=== PATIENT | male | born 1945 | race Caucasian/White ===

== ENCOUNTER 2020-06-15 13:31 | Inpatient (IN) ==
[2020-06-15 14:10] LABS: Basophils % 0.1 %; Hematocrit 28.6 % (37.5-50.1); Hemoglobin 9.2 g/dL (12.9-16.9); Immature Granulocytes % 0.4 % (0-4); Lymphocytes # 0.5 K/mcL (0.6-4.6); Lymphocytes % 5.4 %; Mean Corpuscular HGB Conc 32.2 g/dL (31.6-35.5); Mean Corpuscular Hemoglobin 30.5 pg (28.0-33.3); Mean Corpuscular Volume 94.7 fL (83.0-100.0); Mean Platelet Volume 9.9 fL (9.4-12.4); Monocytes # 1.2 K/mcL (0.0-1.3); Monocytes % 12.3 %; Neutrophils # 8.3 K/mcL (1.6-8.9); Platelet Count 222 K/mcL (140-400); Red Blood Count 3.02 M/mcL (4.19-5.50); Red Cell Distribution Width 14.1 % (11.5-14.5); Segmented Neutrophils % 81.8 %; White Blood Count 10.1 K/mcL (4.3-11.1)
[2020-06-15 14:18] LABS: VBG HCO3 26 mEq/L (21-27); VBG PCO2 53 mmHg (41-51); VBG PH 7.29 pH Units (7.32-7.42); VBG PO2 43 mmHg (25-50)
[2020-06-15 14:19] LABS: INR 1.2; Prothrombin Time 14.3 Seconds (9.4-12.1)
[2020-06-15 14:21] LABS: Activated Partial Thrombo Time 23.6 Seconds (26.0-36.0)
[2020-06-15 14:30] LABS: Alanine Aminotransferase 18 Units/L (7-52); Albumin 3.8 g/dL (3.5-5.7); Albumin/Globulin Ratio 1.3 (1.1-2.2); Alkaline Phosphatase 85 Units/L (34-104); Aspartate Amino Transferase 22 Units/L (13-39); BUN/Creatinine Ratio 21 (6-26); Bilirubin,Indirect 0.4 mg/dL (0.0-1.0); Bilirubin,Total 0.4 mg/dL (0.3-1.0); Blood Urea Nitrogen 46 mg/dL (8-23); Calcium 8.8 mg/dL (8.6-10.3); Carbon Dioxide 25 mEq/L (23-29); Chloride 96 mEq/L (98-107); Ethanol < 10 mg/dL (Less than 10); Globulin 2.9 g/dL (2.4-3.5); Glucose 199 mg/dL (70-105); Osmolality,Calculated 287 (280-300); Potassium 4.8 mEq/L (3.5-5.1); Sodium 130 mEq/L (136-145); Total Protein 6.7 g/dL (6.4-8.9); Troponin I 0.03 ng/mL (< 0.04); eGFR For African Americans 35 (> 60); eGFR For Non-African Americans 29 (> 60)
[2020-06-15] MEDS ORDERED: Dexamethasone 4 MG/ML VIAL IVP ONE (15:05)
[2020-06-15 16:56] LABS: Bilirubin,Urine Negative (Negative); Blood,Urine Trace (Negative); Clarity,Urine Clear (Clear); Color,Urine Light-Yellow (Yellow); Glucose,Urine (UA) Normal (Normal); Ketones,Urine Negative (Negative); Leukocyte Esterase,Urine Negative (Negative); Mucus,Urine Few per lpf (None-Few); Nitrite,Urine Negative (Negative); PH,Urine 5.5 pH Units (5.0-8.0); Protein,Urine 50 mg/dL (Neg-Trace); RBC,Urine 0-3 per hpf (0-3); Specific Gravity,Urine 1.016 (1.010-1.025); Squamous Epithelial Cell,Urine Few per hpf (None-Few); Urobilinogen,Urine Normal (Normal); WBC,Urine 0-3 per hpf (0-3)
[2020-06-15 17:20] LABS: Amphetamine Screen,Urine Negative ng/mL (Cutoff=1000); Barbiturate Screen,Urine Negative ng/mL (Cutoff=200); Benzodiazepines Screen,Urine Negative ng/mL (Cutoff=200); Cannabinoid Screen,Urine Negative ng/mL (Cutoff = 50); Cocaine Screen,Urine Negative ng/mL (Cutoff= 300); Opiate Screen,Urine Negative ng/mL (Cutoff=300); Phencyclidine Screen,Urine Negative ng/mL (Cutoff=25)
[2020-06-15] MEDS ORDERED: Naloxone 0.4 MG/ML INJ IVP PRN (17:43)
[2020-06-15] MEDS ORDERED: Acetaminophen 325 MG TABLET PO PRN (17:51)
[2020-06-15] MEDS ORDERED: Furosemide 40 MG/4 ML VIAL IVP ONE (17:51)
[2020-06-15] MEDS ORDERED: Dextrose Gel 15 GM/37.5 ML TUBE PO PRN ×2 (17:53)
[2020-06-15] MEDS ORDERED: *HR* Dextrose 50 % in Water (Vial) 50 ML VIAL IVP PRN (17:53)
[2020-06-15] MEDS ORDERED: D5% in Water 1,000 ML IVC PRN (17:53)
[2020-06-15 20:02] LABS: Thyroid Stimulating Hormone 3.144 mcIU/mL (0.340-5.600)
[2020-06-15] MEDS: Insulin LISPRO 300 UNITS/3 ML VIAL SQ SCH (22:03)
[2020-06-15] MEDS: *HR* Heparin 5,000 UNIT/ML VIAL SQ SCH (22:03)
[2020-06-16] MEDS: *HR* Heparin 5,000 UNIT/ML VIAL SQ SCH ×3 (05:33→21:31)
[2020-06-16] MEDS: Aspirin Enteric Coated 81 MG Tablet PO SCH (09:06)
[2020-06-16] MEDS: cefTRIAXone 1,000 MG in Water for inj. (sterile) 10 ML IVP SCH (09:06)
[2020-06-16] MEDS: dexAMETHasone 4 MG TABLET PO SCH (09:06)
[2020-06-16] MEDS: Azithromycin 500 MG in 0.9 % Sodium Chloride 250 ML IVPB SCH (09:07)
[2020-06-16] MEDS: Insulin LISPRO 300 UNITS/3 ML VIAL SQ SCH ×4 (09:08→21:44)
[2020-06-16 09:40] LABS: INR 1.3; Prothrombin Time 14.4 Seconds (9.4-12.1)
[2020-06-16 09:53] LABS: Calcium 8.4 mg/dL (8.6-10.3)
[2020-06-16] MEDS ORDERED: Furosemide 40 MG TABLET PO SCH (13:00)
[2020-06-16] MEDS: Furosemide 40 MG/4 ML VIAL IVP SCH (13:05)
[2020-06-17] MEDS: *HR* HYDROcodone/Acet 5/325 mg TABLET PO PRN ×2 (01:59→14:55)
[2020-06-17] MEDS: *HR* Heparin 5,000 UNIT/ML VIAL SQ SCH (05:46)
[2020-06-17 06:45] LABS: Hematocrit 24.9 % (37.5-50.1); Hemoglobin 8.1 g/dL (12.9-16.9); Mean Corpuscular HGB Conc 32.5 g/dL (31.6-35.5); Mean Corpuscular Hemoglobin 30.6 pg (28.0-33.3); Mean Platelet Volume 9.9 fL (9.4-12.4); Platelet Count 209 K/mcL (140-400); Red Blood Count 2.65 M/mcL (4.19-5.50); Red Cell Distribution Width 13.8 % (11.5-14.5); White Blood Count 7.8 K/mcL (4.3-11.1)
[2020-06-17 07:28] LABS: Calcium 8.4 mg/dL (8.6-10.3); Potassium 4.9 mEq/L (3.5-5.1)
[2020-06-17] MEDS: Insulin LISPRO 300 UNITS/3 ML VIAL SQ SCH ×2 (08:26→11:29)
[2020-06-17] MEDS: Aspirin Enteric Coated 81 MG Tablet PO SCH (08:27)
[2020-06-17] MEDS: dexAMETHasone 4 MG TABLET PO SCH (08:27)
[2020-06-17] MEDS: Azithromycin 500 MG in 0.9 % Sodium Chloride 250 ML IVPB SCH (08:27)
[2020-06-17] MEDS: Furosemide 40 MG/4 ML VIAL IVP SCH (08:30)
[2020-06-17] MEDS: cefTRIAXone 1,000 MG in Water for inj. (sterile) 10 ML IVP SCH (08:31)
[2020-06-17 11:24] VITALS: BP 139/57
== END 2020-06-17 16:22 | disposition home or self-care (01) | DRG 177 ==
LOC: 3BNU 13:31 → EMEROOARM 13:31 → 3BNU 18:50 → SUATTDRO 06-16 14:30
PROVIDERS: ADMIT Internal Medicine; ATTEND Internal Medicine

== ENCOUNTER 2020-06-21 18:25 | Inpatient (IN) ==
[2020-06-21 18:51] LABS: Basophils % 0.1 %; Hematocrit 30.2 % (37.5-50.1); Hemoglobin 9.6 g/dL (12.9-16.9); Immature Granulocytes % 1.5 % (0-4); Lymphocytes # 0.4 K/mcL (0.6-4.6); Lymphocytes % 2.6 %; Mean Corpuscular HGB Conc 31.8 g/dL (31.6-35.5); Mean Corpuscular Volume 94.4 fL (83.0-100.0); Mean Platelet Volume 9.8 fL (9.4-12.4); Monocytes # 0.8 K/mcL (0.0-1.3); Monocytes % 5.9 %; Neutrophils # 12.4 K/mcL (1.6-8.9); Platelet Count 297 K/mcL (140-400); Segmented Neutrophils % 89.9 %
[2020-06-21 18:54] LABS: INR 1.4; Prothrombin Time 16.2 Seconds (9.4-12.1); White Blood Count 13.8 K/mcL (4.3-11.1)
[2020-06-21 18:56] LABS: Activated Partial Thrombo Time 28.8 Seconds (26.0-36.0)
[2020-06-21 18:59] LABS: ABG Base Excess -3 mEq/L (-2 to 3); ABG HCO3 22 mEq/L (21-27); ABG Oxygen Saturation 93 % (95-98); ABG PCO2 36 mmHg (35-45); ABG PH 7.39 pH Units (7.32-7.45); ABG PO2 67 mmHg (85-104); ABG TCO2 23 mEq/L (20-26)
[2020-06-21] MEDS ORDERED: Azithromycin 500 MG in 0.9 % Sodium Chloride 250 ML IVPB ONE (19:38)
[2020-06-21 19:54] LABS: Albumin 3.4 g/dL (3.5-5.7); Albumin/Globulin Ratio 1.1 (1.1-2.2); Bilirubin,Direct 0.2 mg/dL (0.0-0.2); Bilirubin,Indirect 0.3 mg/dL (0.0-1.0); Bilirubin,Total 0.5 mg/dL (0.3-1.0); Calcium 9.1 mg/dL (8.6-10.3); Magnesium 1.9 mg/dL (1.6-2.6); Phosphorous 3.6 mg/dL (2.7-4.5); Potassium 5.4 mEq/L (3.5-5.1); Total Protein 6.4 g/dL (6.4-8.9); Troponin I 0.03 ng/mL (< 0.04)
[2020-06-21] MEDS ORDERED: Naloxone 0.4 MG/ML INJ IVP PRN (20:54)
[2020-06-21] MEDS ORDERED: D5% in Water 1,000 ML IVC PRN (20:56)
[2020-06-21] MEDS ORDERED: Dextrose Gel 15 GM/37.5 ML TUBE PO PRN ×2 (20:56)
[2020-06-21] MEDS ORDERED: *HR* Dextrose 50 % in Water (Vial) 50 ML VIAL IVP PRN (20:56)
[2020-06-21] MEDS ORDERED: Benzonatate 100 MG CAPSULE PO PRN (20:58)
[2020-06-21] MEDS: Insulin DETEMIR 100 UNIT/ML X5UNITS SUBQ SCH (23:31)
[2020-06-21] MEDS: Insulin LISPRO 300 UNITS/3 ML VIAL SUBQ SCH (23:31)
[2020-06-21] MEDS: Piperacillin/Tazobactam 3.375 GM in 0.9 % Sodium Chloride Mini Bag 100 ML IVPB SCH (23:32)
[2020-06-22] MEDS: Acetaminophen 325 MG TABLET PO PRN ×2 (02:22→18:05)
[2020-06-22] MEDS: *HR* Heparin 5,000 UNIT/ML VIAL SQ SCH ×2 (06:42→17:48)
[2020-06-22 06:54] LABS: Basophils % 0.1 %; Hematocrit 26.5 % (37.5-50.1); Hemoglobin 8.5 g/dL (12.9-16.9); Immature Granulocytes % 1.6 % (0-4); Lymphocytes # 0.2 K/mcL (0.6-4.6); Lymphocytes % 1.8 %; Mean Corpuscular HGB Conc 32.1 g/dL (31.6-35.5); Mean Corpuscular Hemoglobin 30.2 pg (28.0-33.3); Mean Corpuscular Volume 94.3 fL (83.0-100.0); Mean Platelet Volume 10.1 fL (9.4-12.4); Monocytes # 0.7 K/mcL (0.0-1.3); Monocytes % 5.6 %; Neutrophils # 10.5 K/mcL (1.6-8.9); Platelet Count 249 K/mcL (140-400); Red Blood Count 2.81 M/mcL (4.19-5.50); Segmented Neutrophils % 90.9 %; White Blood Count 11.6 K/mcL (4.3-11.1)
[2020-06-22 07:42] LABS: Magnesium 2.2 mg/dL (1.6-2.6); Phosphorous 4.3 mg/dL (2.7-4.5); Potassium 5.3 mEq/L (3.5-5.1); Troponin I 0.04 ng/mL (< 0.04)
[2020-06-22] MEDS ORDERED: Doxycycline 100 MG in 0.9 % Sodium Chloride Mini Bag 100 ML IVPB SCH (07:43)
[2020-06-22] MEDS ORDERED: Azithromycin 500 MG in 0.9 % Sodium Chloride 250 ML IVPB SCH (08:00)
[2020-06-22] MEDS: Insulin LISPRO 300 UNITS/3 ML VIAL SUBQ SCH ×4 (10:22→20:44)
[2020-06-22] MEDS: Piperacillin/Tazobactam 3.375 GM in 0.9 % Sodium Chloride Mini Bag 100 ML IVPB SCH ×2 (10:23→16:25)
[2020-06-22] MEDS: Aspirin Enteric Coated 81 MG Tablet PO SCH (10:24)
[2020-06-22] MEDS: Furosemide 40 MG/4 ML VIAL IVP SCH (10:24)
[2020-06-22] MEDS: atenoloL 25 MG TABLET PO SCH ×2 (10:24→20:45)
[2020-06-22] MEDS: Ipratropium 1 PUFF INHALER IH SCH ×4 (11:58→23:33)
[2020-06-22] MEDS: Insulin DETEMIR 100 UNIT/ML X5UNITS SUBQ SCH (20:44)
[2020-06-22] MEDS: Azithromycin 500 MG in 0.9 % Sodium Chloride 250 ML IVPB SCH (20:45)
[2020-06-23] MEDS: Piperacillin/Tazobactam 3.375 GM in 0.9 % Sodium Chloride Mini Bag 100 ML IVPB SCH ×5 (00:08→23:42)
[2020-06-23 03:57] LABS: Hematocrit 26.9 % (37.5-50.1); Hemoglobin 8.2 g/dL (12.9-16.9); Mean Corpuscular HGB Conc 30.5 g/dL (31.6-35.5); Mean Corpuscular Hemoglobin 29.1 pg (28.0-33.3); Mean Corpuscular Volume 95.4 fL (83.0-100.0); Mean Platelet Volume 9.9 fL (9.4-12.4); Platelet Count 281 K/mcL (140-400); Red Blood Count 2.82 M/mcL (4.19-5.50); Red Cell Distribution Width 14.3 % (11.5-14.5); White Blood Count 12.6 K/mcL (4.3-11.1)
[2020-06-23] MEDS: Ipratropium 1 PUFF INHALER IH SCH ×5 (04:08→20:20)
[2020-06-23 04:16] LABS: Calcium 8.8 mg/dL (8.6-10.3); Potassium 5.1 mEq/L (3.5-5.1)
[2020-06-23] MEDS: *HR* Heparin 5,000 UNIT/ML VIAL SQ SCH ×2 (04:45→18:12)
[2020-06-23] MEDS: atenoloL 25 MG TABLET PO SCH ×2 (09:01→19:59)
[2020-06-23] MEDS: Aspirin Enteric Coated 81 MG Tablet PO SCH (09:02)
[2020-06-23] MEDS: Insulin LISPRO 300 UNITS/3 ML VIAL SUBQ SCH ×4 (09:28→22:15)
[2020-06-23] MEDS: Furosemide 40 MG/4 ML VIAL IVP SCH (09:32)
[2020-06-23] MEDS: Acetaminophen 325 MG TABLET PO PRN ×2 (13:15→23:46)
[2020-06-23] MEDS: Insulin DETEMIR 100 UNIT/ML X5UNITS SUBQ SCH (20:23)
[2020-06-23] MEDS ORDERED: Furosemide 40 MG/4 ML VIAL IVP SCH (21:00)
[2020-06-23] MEDS: Azithromycin 500 MG in 0.9 % Sodium Chloride 250 ML IVPB SCH (22:29)
[2020-06-24] MEDS: Ipratropium 1 PUFF INHALER IH SCH ×6 (00:45→19:39)
[2020-06-24 05:47] LABS: Hematocrit 25.7 % (37.5-50.1); Mean Corpuscular HGB Conc 31.1 g/dL (31.6-35.5); Mean Corpuscular Hemoglobin 29.7 pg (28.0-33.3); Mean Corpuscular Volume 95.5 fL (83.0-100.0); Mean Platelet Volume 9.9 fL (9.4-12.4); Platelet Count 297 K/mcL (140-400); Red Blood Count 2.69 M/mcL (4.19-5.50); Red Cell Distribution Width 14.3 % (11.5-14.5); White Blood Count 12.3 K/mcL (4.3-11.1)
[2020-06-24 06:09] LABS: Calcium 8.8 mg/dL (8.6-10.3); Magnesium 2.3 mg/dL (1.6-2.6)
[2020-06-24] MEDS: *HR* Heparin 5,000 UNIT/ML VIAL SQ SCH (06:21)
[2020-06-24] MEDS: Piperacillin/Tazobactam 3.375 GM in 0.9 % Sodium Chloride Mini Bag 100 ML IVPB SCH ×2 (08:26→15:24)
[2020-06-24] MEDS: Furosemide 40 MG/4 ML VIAL IVP SCH (08:28)
[2020-06-24] MEDS: atenoloL 25 MG TABLET PO SCH ×2 (08:31→20:19)
[2020-06-24] MEDS: Aspirin Enteric Coated 81 MG Tablet PO SCH (08:31)
[2020-06-24] MEDS: Insulin LISPRO 300 UNITS/3 ML VIAL SUBQ SCH ×4 (08:36→20:19)
[2020-06-24] MEDS: Vancomycin 1,750 MG/517.5 ML IV.SOLN IVPB SCH (13:35)
[2020-06-24] MEDS ORDERED: Pantoprazole 40 MG VIAL IVP ONE (16:00)
[2020-06-24] MEDS: Azithromycin 500 MG in 0.9 % Sodium Chloride 250 ML IVPB SCH (20:18)
[2020-06-24] MEDS: *HR* OxyCODONE/APAP 7.5/325 TABLET PO PRN (20:25)
[2020-06-24] MEDS: Insulin DETEMIR 100 UNIT/ML X5UNITS SUBQ SCH (21:57)
[2020-06-25] MEDS: Piperacillin/Tazobactam 3.375 GM in 0.9 % Sodium Chloride Mini Bag 100 ML IVPB SCH ×4 (00:01→23:34)
[2020-06-25] MEDS: Ipratropium 1 PUFF INHALER IH SCH ×7 (00:09→23:40)
[2020-06-25] MEDS: *HR* OxyCODONE/APAP 7.5/325 TABLET PO PRN ×2 (04:42→17:04)
[2020-06-25] MEDS: Pantoprazole 40 MG VIAL IVP SCH ×2 (04:42→16:52)
[2020-06-25 05:02] LABS: Hematocrit 26.4 % (37.5-50.1); Mean Corpuscular HGB Conc 30.3 g/dL (31.6-35.5); Mean Corpuscular Hemoglobin 29.4 pg (28.0-33.3); Mean Corpuscular Volume 97.1 fL (83.0-100.0); Mean Platelet Volume 9.7 fL (9.4-12.4); Platelet Count 304 K/mcL (140-400); Red Blood Count 2.72 M/mcL (4.19-5.50); Red Cell Distribution Width 14.4 % (11.5-14.5); White Blood Count 11.4 K/mcL (4.3-11.1)
[2020-06-25 05:23] LABS: Calcium 8.8 mg/dL (8.6-10.3); Magnesium 2.2 mg/dL (1.6-2.6); Potassium 5.2 mEq/L (3.5-5.1)
[2020-06-25] MEDS: atenoloL 25 MG TABLET PO SCH ×2 (07:31→20:24)
[2020-06-25] MEDS: Furosemide 40 MG/4 ML VIAL IVP SCH (07:31)
[2020-06-25] MEDS: Insulin LISPRO 300 UNITS/3 ML VIAL SUBQ SCH ×4 (07:33→20:23)
[2020-06-25] MEDS: Vancomycin 1,750 MG/517.5 ML IV.SOLN IVPB SCH (12:06)
[2020-06-25] MEDS ORDERED: 0.9 % Sodium Chloride 500 ML IVC ONE (12:56)
[2020-06-25] MEDS ORDERED: SODIUM CHLORIDE/NAHCO3/KCL/PEG 4,000 ML SOLN.RECON PO ONE (17:00)
[2020-06-25] MEDS: Azithromycin 500 MG in 0.9 % Sodium Chloride 250 ML IVPB SCH (20:19)
[2020-06-25] MEDS: Insulin DETEMIR 100 UNIT/ML X5UNITS SUBQ SCH (20:24)
[2020-06-26] MEDS: *HR* OxyCODONE/APAP 7.5/325 TABLET PO PRN (01:48)
[2020-06-26] MEDS: Ipratropium 1 PUFF INHALER IH SCH ×6 (03:42→22:54)
[2020-06-26 04:25] LABS: Hematocrit 24.1 % (37.5-50.1); Hemoglobin 7.3 g/dL (12.9-16.9); Mean Corpuscular HGB Conc 30.3 g/dL (31.6-35.5); Mean Corpuscular Hemoglobin 29.6 pg (28.0-33.3); Mean Corpuscular Volume 97.6 fL (83.0-100.0); Mean Platelet Volume 9.6 fL (9.4-12.4); Platelet Count 268 K/mcL (140-400); Red Blood Count 2.47 M/mcL (4.19-5.50); Red Cell Distribution Width 14.4 % (11.5-14.5); White Blood Count 11.2 K/mcL (4.3-11.1)
[2020-06-26 04:40] LABS: Calcium 8.3 mg/dL (8.6-10.3); Potassium 4.7 mEq/L (3.5-5.1)
[2020-06-26] MEDS: Pantoprazole 40 MG VIAL IVP SCH (05:19)
[2020-06-26] MEDS: Piperacillin/Tazobactam 3.375 GM in 0.9 % Sodium Chloride Mini Bag 100 ML IVPB SCH ×3 (07:30→23:48)
[2020-06-26] MEDS: atenoloL 25 MG TABLET PO SCH ×2 (07:30→21:41)
[2020-06-26] MEDS: Insulin LISPRO 300 UNITS/3 ML VIAL SUBQ SCH ×5 (07:37→21:40)
[2020-06-26] MEDS: Vancomycin 1,750 MG/517.5 ML IV.SOLN IVPB SCH (12:27)
[2020-06-26] MEDS ORDERED: Lidocaine -MPF 2% 2 ML VIAL ONE (15:25)
[2020-06-26] MEDS ORDERED: *HR* EPINEPHrine 1 MG/10 ML SYRINGE INTRATRACH PRN (16:03)
[2020-06-26] MEDS ORDERED: Pantoprazole 40 MG VIAL IVP ONE (16:49)
[2020-06-26] MEDS: Pantoprazole 40 MG in 0.9 % Sodium Chloride Mini Bag 100 ML IVC SCH ×2 (17:06→21:43)
[2020-06-26] MEDS: Insulin DETEMIR 100 UNIT/ML X5UNITS SUBQ SCH ×2 (20:36→21:41)
[2020-06-26] MEDS: Azithromycin 500 MG in 0.9 % Sodium Chloride 250 ML IVPB SCH (21:40)
[2020-06-27] MEDS: Pantoprazole 40 MG in 0.9 % Sodium Chloride Mini Bag 100 ML IVC SCH ×5 (03:16→19:54)
[2020-06-27] MEDS: Ipratropium 1 PUFF INHALER IH SCH ×6 (03:44→23:10)
[2020-06-27 04:45] LABS: Basophils % 0.1 %; Eosinophils % 0.1 %; Hematocrit 24.5 % (37.5-50.1); Hemoglobin 7.3 g/dL (12.9-16.9); Immature Granulocytes % 1.6 % (0-4); Lymphocytes # 0.4 K/mcL (0.6-4.6); Lymphocytes % 3.8 %; Mean Corpuscular HGB Conc 29.8 g/dL (31.6-35.5); Mean Corpuscular Hemoglobin 29.2 pg (28.0-33.3); Mean Platelet Volume 9.8 fL (9.4-12.4); Monocytes # 0.8 K/mcL (0.0-1.3); Monocytes % 7.7 %; Neutrophils # 9.5 K/mcL (1.6-8.9); Nucleated Red Blood Cells 0.2 /100 WBC (0); Platelet Count 254 K/mcL (140-400); Red Cell Distribution Width 14.6 % (11.5-14.5); Segmented Neutrophils % 86.7 %; White Blood Count 10.9 K/mcL (4.3-11.1)
[2020-06-27 05:04] LABS: Calcium 8.1 mg/dL (8.6-10.3); Potassium 5.3 mEq/L (3.5-5.1)
[2020-06-27] MEDS: Insulin LISPRO 300 UNITS/3 ML VIAL SUBQ SCH ×4 (07:37→19:54)
[2020-06-27] MEDS: atenoloL 25 MG TABLET PO SCH ×2 (07:38→19:53)
[2020-06-27] MEDS: *HR* OxyCODONE/APAP 7.5/325 TABLET PO PRN ×2 (07:38→21:08)
[2020-06-27] MEDS: Piperacillin/Tazobactam 3.375 GM in 0.9 % Sodium Chloride Mini Bag 100 ML IVPB SCH ×3 (07:38→23:45)
[2020-06-27] MEDS ORDERED: 0.9 % Sodium Chloride 250 ML ONE (08:56)
[2020-06-27] MEDS ORDERED: *HR* FentaNYL (PF) 100 MCG/2 ML VIAL ONE (12:42)
[2020-06-27] MEDS ORDERED: Lidocaine -MPF 2% 2 ML VIAL ONE ×2 (12:42→13:30)
[2020-06-27] MEDS ORDERED: Ondansetron 4 MG/2 ML VIAL ONE (12:42)
[2020-06-27] MEDS ORDERED: Ropivacaine/PF 0.5% 30 ML VIAL ONE (12:44)
[2020-06-27] MEDS ORDERED: *HR* OxyCODONE Immed Rel 5 MG TABLET PO PRN ×2 (12:52→14:58)
[2020-06-27] MEDS ORDERED: *HR* HYDROmorphone PF 0.5 MG/0.5 ML SYRINGE IVP PRN ×2 (12:52→14:58)
[2020-06-27] MEDS ORDERED: Ondansetron 4 MG/2 ML VIAL IVP PRN ×2 (12:52→14:58)
[2020-06-27] MEDS ORDERED: Ringers Solution, Lactated 1,000 ML IVC SCH (13:00)
[2020-06-27] MEDS: Vancomycin 1,750 MG/517.5 ML IV.SOLN IVPB SCH (13:20)
[2020-06-27] MEDS ORDERED: Vancomycin 1,500 MG/265 ML IV.SOLN IVPB SCH (14:00)
[2020-06-27] MEDS ORDERED: D5% in Water 1,000 ML IVC PRN (14:58)
[2020-06-27] MEDS ORDERED: Acetaminophen 325 MG TABLET PO PRN (14:58)
[2020-06-27] MEDS ORDERED: Benzonatate 100 MG CAPSULE PO PRN (14:58)
[2020-06-27] MEDS ORDERED: Naloxone 0.4 MG/ML INJ IVP PRN (14:58)
[2020-06-27] MEDS ORDERED: *HR* EPINEPHrine 1 MG/10 ML SYRINGE INTRATRACH PRN (14:58)
[2020-06-27] MEDS ORDERED: Dextrose Gel 15 GM/37.5 ML TUBE PO PRN ×2 (14:58)
[2020-06-27] MEDS ORDERED: *HR* Dextrose 50 % in Water (Vial) 50 ML VIAL IVP PRN (14:58)
[2020-06-27] MEDS: Ringers Solution, Lactated 1,000 ML IVC SCH (15:30)
[2020-06-27] MEDS: Insulin DETEMIR 100 UNIT/ML X5UNITS SUBQ SCH (19:54)
[2020-06-27] MEDS: Azithromycin 500 MG in 0.9 % Sodium Chloride 250 ML IVPB SCH (19:56)
[2020-06-28 02:14] LABS: Basophils % 0.1 %; Hematocrit 24.4 % (37.5-50.1); Hemoglobin 7.4 g/dL (12.9-16.9); Immature Granulocytes % 1.6 % (0-4); Lymphocytes # 0.2 K/mcL (0.6-4.6); Mean Corpuscular HGB Conc 30.3 g/dL (31.6-35.5); Mean Corpuscular Hemoglobin 29.5 pg (28.0-33.3); Mean Corpuscular Volume 97.2 fL (83.0-100.0); Mean Platelet Volume 9.9 fL (9.4-12.4); Monocytes # 0.3 K/mcL (0.0-1.3); Monocytes % 2.3 %; Neutrophils # 10.5 K/mcL (1.6-8.9); Platelet Count 244 K/mcL (140-400); Red Blood Count 2.51 M/mcL (4.19-5.50); Red Cell Distribution Width 14.6 % (11.5-14.5); White Blood Count 11.1 K/mcL (4.3-11.1)
[2020-06-28] MEDS: Pantoprazole 40 MG in 0.9 % Sodium Chloride Mini Bag 100 ML IVC SCH ×4 (02:20→19:33)
[2020-06-28 02:38] LABS: Calcium 8.2 mg/dL (8.6-10.3); Potassium 5.5 mEq/L (3.5-5.1)
[2020-06-28] MEDS: Ipratropium 1 PUFF INHALER IH SCH ×6 (04:14→23:39)
[2020-06-28] MEDS: atenoloL 25 MG TABLET PO SCH ×2 (08:14→20:08)
[2020-06-28] MEDS: Piperacillin/Tazobactam 3.375 GM in 0.9 % Sodium Chloride Mini Bag 100 ML IVPB SCH ×3 (08:15→23:12)
[2020-06-28] MEDS: Insulin LISPRO 300 UNITS/3 ML VIAL SUBQ SCH ×4 (08:19→20:09)
[2020-06-28] MEDS: Ringers Solution, Lactated 1,000 ML IVC SCH (12:16)
[2020-06-28] MEDS: Vancomycin 1,500 MG/265 ML IV.SOLN IVPB SCH (14:12)
[2020-06-28] MEDS: *HR* OxyCODONE/APAP 7.5/325 TABLET PO PRN (17:46)
[2020-06-28] MEDS: Azithromycin 500 MG in 0.9 % Sodium Chloride 250 ML IVPB SCH (19:35)
[2020-06-28] MEDS: Insulin DETEMIR 100 UNIT/ML X5UNITS SUBQ SCH (20:09)
[2020-06-29] MEDS: Pantoprazole 40 MG in 0.9 % Sodium Chloride Mini Bag 100 ML IVC SCH ×5 (00:39→16:29)
[2020-06-29] MEDS: Ipratropium 1 PUFF INHALER IH SCH ×5 (03:51→20:37)
[2020-06-29 06:04] LABS: Basophils % 0.1 %; Eosinophils # 0.1 K/mcL (0.0-0.6); Eosinophils % 0.5 %; Hematocrit 22.5 % (37.5-50.1); Hemoglobin 6.9 g/dL (12.9-16.9); Lymphocytes # 0.7 K/mcL (0.6-4.6); Lymphocytes % 5.3 %; Mean Corpuscular HGB Conc 30.7 g/dL (31.6-35.5); Mean Corpuscular Hemoglobin 29.1 pg (28.0-33.3); Mean Corpuscular Volume 94.9 fL (83.0-100.0); Mean Platelet Volume 9.7 fL (9.4-12.4); Monocytes % 7.7 %; Neutrophils # 11.3 K/mcL (1.6-8.9); Platelet Count 278 K/mcL (140-400); Red Blood Count 2.37 M/mcL (4.19-5.50); Red Cell Distribution Width 14.8 % (11.5-14.5); Segmented Neutrophils % 84.4 %; White Blood Count 13.3 K/mcL (4.3-11.1)
[2020-06-29 06:24] LABS: Calcium 8.6 mg/dL (8.6-10.3); Potassium 4.6 mEq/L (3.5-5.1)
[2020-06-29] MEDS: Insulin LISPRO 300 UNITS/3 ML VIAL SUBQ SCH ×4 (07:52→20:37)
[2020-06-29] MEDS: Piperacillin/Tazobactam 3.375 GM in 0.9 % Sodium Chloride Mini Bag 100 ML IVPB SCH ×3 (08:40→23:33)
[2020-06-29] MEDS: atenoloL 25 MG TABLET PO SCH ×2 (08:41→20:36)
[2020-06-29] MEDS: *HR* OxyCODONE/APAP 7.5/325 TABLET PO PRN ×2 (12:21→23:33)
[2020-06-29] MEDS: Vancomycin 1,500 MG/265 ML IV.SOLN IVPB SCH (13:19)
[2020-06-29] MEDS ORDERED: 0.9 % Sodium Chloride 250 ML ONE ×2 (16:01→19:49)
[2020-06-29] MEDS: Azithromycin 500 MG in 0.9 % Sodium Chloride 250 ML IVPB SCH (20:36)
[2020-06-29] MEDS: Insulin DETEMIR 100 UNIT/ML X5UNITS SUBQ SCH (20:37)
[2020-06-30] MEDS: Ipratropium 1 PUFF INHALER IH SCH ×6 (00:12→20:41)
[2020-06-30 04:27] LABS: Basophils % 0.1 %; Eosinophils # 0.1 K/mcL (0.0-0.6); Eosinophils % 0.8 %; Hematocrit 25.7 % (37.5-50.1); Hemoglobin 7.9 g/dL (12.9-16.9); Immature Granulocytes % 1.6 % (0-4); Lymphocytes # 0.5 K/mcL (0.6-4.6); Lymphocytes % 5.2 %; Mean Corpuscular HGB Conc 30.7 g/dL (31.6-35.5); Mean Corpuscular Volume 94.5 fL (83.0-100.0); Mean Platelet Volume 9.7 fL (9.4-12.4); Monocytes # 0.7 K/mcL (0.0-1.3); Monocytes % 7.2 %; Nucleated Red Blood Cells 0.2 /100 WBC (0); Platelet Count 234 K/mcL (140-400); Red Blood Count 2.72 M/mcL (4.19-5.50); Red Cell Distribution Width 14.8 % (11.5-14.5); Segmented Neutrophils % 85.1 %; White Blood Count 9.4 K/mcL (4.3-11.1)
[2020-06-30 04:46] LABS: Calcium 8.2 mg/dL (8.6-10.3); Magnesium 1.9 mg/dL (1.6-2.6); Potassium 4.8 mEq/L (3.5-5.1)
[2020-06-30] MEDS: Insulin LISPRO 300 UNITS/3 ML VIAL SUBQ SCH ×4 (08:06→23:18)
[2020-06-30] MEDS: Piperacillin/Tazobactam 3.375 GM in 0.9 % Sodium Chloride Mini Bag 100 ML IVPB SCH ×2 (08:06→16:36)
[2020-06-30] MEDS: *HR* OxyCODONE/APAP 7.5/325 TABLET PO PRN (08:08)
[2020-06-30] MEDS: atenoloL 25 MG TABLET PO SCH ×2 (08:08→23:17)
[2020-06-30] MEDS ORDERED: Furosemide 40 MG/4 ML VIAL IVP ONE (09:27)
[2020-06-30] MEDS ORDERED: Haloperidol Lactate 5 MG/ML VIAL IVP ONE ×2 (11:50→13:53)
[2020-06-30] MEDS: Vancomycin 1,500 MG/265 ML IV.SOLN IVPB SCH (14:13)
[2020-06-30] MEDS: Vancomycin 1,250 MG/262.5 ML IV.SOLN IVPB SCH (14:59)
[2020-06-30] MEDS: Pantoprazole 40 MG VIAL IVP SCH (16:36)
[2020-06-30] MEDS ORDERED: QUEtiapine Fumarate 25 MG TABLET PO ONE (22:56)
[2020-06-30] MEDS: Azithromycin 500 MG in 0.9 % Sodium Chloride 250 ML IVPB SCH (23:16)
[2020-06-30] MEDS: Insulin DETEMIR 100 UNIT/ML X5UNITS SUBQ SCH (23:17)
[2020-07-01] MEDS: Ipratropium 1 PUFF INHALER IH SCH ×7 (00:28→23:40)
[2020-07-01] MEDS: Piperacillin/Tazobactam 3.375 GM in 0.9 % Sodium Chloride Mini Bag 100 ML IVPB SCH ×3 (01:29→18:09)
[2020-07-01] MEDS: Pantoprazole 40 MG VIAL IVP SCH ×2 (05:52→18:10)
[2020-07-01] MEDS: atenoloL 25 MG TABLET PO SCH ×2 (09:15→20:53)
[2020-07-01] MEDS: Insulin LISPRO 300 UNITS/3 ML VIAL SUBQ SCH ×4 (09:17→21:05)
[2020-07-01] MEDS: Vancomycin 1,250 MG/262.5 ML IV.SOLN IVPB SCH (16:26)
[2020-07-01] MEDS: Insulin DETEMIR 100 UNIT/ML X5UNITS SUBQ SCH (20:53)
[2020-07-01] MEDS: Azithromycin 500 MG in 0.9 % Sodium Chloride 250 ML IVPB SCH ×2 (21:57→23:24)
[2020-07-02] MEDS: Piperacillin/Tazobactam 3.375 GM in 0.9 % Sodium Chloride Mini Bag 100 ML IVPB SCH ×3 (00:26→16:44)
[2020-07-02] MEDS: Ipratropium 1 PUFF INHALER IH SCH ×6 (03:20→23:55)
[2020-07-02] MEDS: Pantoprazole 40 MG VIAL IVP SCH ×2 (05:11→21:10)
[2020-07-02 05:55] LABS: Basophils % 0.1 %; Eosinophils % 0.1 %; Hematocrit 20.3 % (37.5-50.1); Hemoglobin 6.4 g/dL (12.9-16.9); Immature Granulocytes % 0.8 % (0-4); Lymphocytes # 0.7 K/mcL (0.6-4.6); Lymphocytes % 4.8 %; Mean Corpuscular HGB Conc 31.5 g/dL (31.6-35.5); Mean Corpuscular Volume 95.3 fL (83.0-100.0); Mean Platelet Volume 10.1 fL (9.4-12.4); Monocytes % 6.6 %; Neutrophils # 13.5 K/mcL (1.6-8.9); Nucleated Red Blood Cells 0.2 /100 WBC (0); Platelet Count 260 K/mcL (140-400); Red Blood Count 2.13 M/mcL (4.19-5.50); Red Cell Distribution Width 15.6 % (11.5-14.5); Segmented Neutrophils % 87.6 %; White Blood Count 15.4 K/mcL (4.3-11.1)
[2020-07-02 06:17] LABS: Calcium 8.8 mg/dL (8.6-10.3); Potassium 4.9 mEq/L (3.5-5.1)
[2020-07-02] MEDS: atenoloL 25 MG TABLET PO SCH ×2 (07:58→21:49)
[2020-07-02] MEDS: Insulin LISPRO 300 UNITS/3 ML VIAL SUBQ SCH ×4 (08:08→21:47)
[2020-07-02] MEDS ORDERED: 0.9 % Sodium Chloride 250 ML ONE (09:20)
[2020-07-02] MEDS ORDERED: Furosemide 40 MG/4 ML VIAL IVP ONE (12:55)
[2020-07-02] MEDS: Vancomycin 1,250 MG/262.5 ML IV.SOLN IVPB SCH (16:46)
[2020-07-02] MEDS: Azithromycin 500 MG in 0.9 % Sodium Chloride 250 ML IVPB SCH (21:26)
[2020-07-02] MEDS: Insulin DETEMIR 100 UNIT/ML X5UNITS SUBQ SCH (21:48)
[2020-07-03] MEDS: Piperacillin/Tazobactam 3.375 GM in 0.9 % Sodium Chloride Mini Bag 100 ML IVPB SCH ×3 (00:58→17:02)
[2020-07-03] MEDS: Ipratropium 1 PUFF INHALER IH SCH ×6 (03:17→23:29)
[2020-07-03] MEDS: *HR* OxyCODONE/APAP 7.5/325 TABLET PO PRN (03:18)
[2020-07-03 04:44] LABS: Basophils % 0.1 %; Eosinophils % 0.2 %; Hematocrit 20.8 % (37.5-50.1); Hemoglobin 6.6 g/dL (12.9-16.9); Immature Granulocytes % 0.9 % (0-4); Lymphocytes # 0.4 K/mcL (0.6-4.6); Lymphocytes % 4.2 %; Mean Corpuscular HGB Conc 31.7 g/dL (31.6-35.5); Mean Corpuscular Hemoglobin 30.4 pg (28.0-33.3); Mean Corpuscular Volume 95.9 fL (83.0-100.0); Monocytes # 0.8 K/mcL (0.0-1.3); Monocytes % 8.1 %; Neutrophils # 8.3 K/mcL (1.6-8.9); Nucleated Red Blood Cells 0.5 /100 WBC (0); Platelet Count 199 K/mcL (140-400); Red Blood Count 2.17 M/mcL (4.19-5.50); Red Cell Distribution Width 16.1 % (11.5-14.5); Segmented Neutrophils % 86.5 %; White Blood Count 9.7 K/mcL (4.3-11.1)
[2020-07-03 04:53] LABS: Calcium 8.3 mg/dL (8.6-10.3); Potassium 4.7 mEq/L (3.5-5.1)
[2020-07-03] MEDS: Pantoprazole 40 MG VIAL IVP SCH ×2 (05:17→17:03)
[2020-07-03] MEDS ORDERED: 0.9 % Sodium Chloride 250 ML ONE ×2 (06:25→13:48)
[2020-07-03] MEDS: Insulin LISPRO 300 UNITS/3 ML VIAL SUBQ SCH ×4 (07:41→21:03)
[2020-07-03] MEDS: atenoloL 25 MG TABLET PO SCH ×2 (07:53→21:03)
[2020-07-03 11:44] LABS: Hematocrit 24.1 % (37.5-50.1); Hemoglobin 7.5 g/dL (12.9-16.9)
[2020-07-03] MEDS ORDERED: *HR* Propofol 200 MG/20 ML VIAL IVP ONE (15:00)
[2020-07-03] MEDS ORDERED: Lidocaine -MPF 2% 2 ML VIAL ONE (15:04)
[2020-07-03] MEDS: Vancomycin 1,250 MG/262.5 ML IV.SOLN IVPB SCH (16:21)
[2020-07-03] MEDS ORDERED: Vancomycin 1,250 MG/262.5 ML IV.SOLN IVPB SCH (17:00)
[2020-07-03 20:22] LABS: Hematocrit 28.2 % (37.5-50.1); Hemoglobin 8.8 g/dL (12.9-16.9)
[2020-07-03] MEDS: Azithromycin 500 MG in 0.9 % Sodium Chloride 250 ML IVPB SCH (21:00)
[2020-07-03] MEDS: Furosemide 40 MG/4 ML VIAL IVP SCH (21:03)
[2020-07-03] MEDS: QUEtiapine Fumarate 25 MG TABLET PO SCH (21:03)
[2020-07-03] MEDS: Insulin DETEMIR 100 UNIT/ML X5UNITS SUBQ SCH (21:05)
[2020-07-04] MEDS: Piperacillin/Tazobactam 3.375 GM in 0.9 % Sodium Chloride Mini Bag 100 ML IVPB SCH ×3 (00:31→16:19)
[2020-07-04] MEDS: Ipratropium 1 PUFF INHALER IH SCH ×6 (03:57→23:14)
[2020-07-04] MEDS: *HR* OxyCODONE/APAP 7.5/325 TABLET PO PRN (04:08)
[2020-07-04 04:49] LABS: INR 1.3; Prothrombin Time 14.6 Seconds (9.4-12.1)
[2020-07-04 04:51] LABS: Activated Partial Thrombo Time 25.3 Seconds (26.0-36.0); Basophils % 0.1 %; Hematocrit 26.6 % (37.5-50.1); Immature Granulocytes % 0.7 % (0-4); Lymphocytes # 0.3 K/mcL (0.6-4.6); Mean Corpuscular HGB Conc 30.1 g/dL (31.6-35.5); Mean Corpuscular Hemoglobin 29.1 pg (28.0-33.3); Mean Corpuscular Volume 96.7 fL (83.0-100.0); Mean Platelet Volume 9.9 fL (9.4-12.4); Monocytes # 0.8 K/mcL (0.0-1.3); Monocytes % 7.9 %; Neutrophils # 9.4 K/mcL (1.6-8.9); Nucleated Red Blood Cells 0.3 /100 WBC (0); Platelet Count 184 K/mcL (140-400); Red Blood Count 2.75 M/mcL (4.19-5.50); Red Cell Distribution Width 16.3 % (11.5-14.5); Segmented Neutrophils % 88.3 %; White Blood Count 10.6 K/mcL (4.3-11.1)
[2020-07-04 05:05] LABS: Albumin 2.5 g/dL (3.5-5.7); Bilirubin,Total 0.3 mg/dL (0.3-1.0); Calcium 8.4 mg/dL (8.6-10.3); Globulin 2.6 g/dL (2.4-3.5); Magnesium 1.8 mg/dL (1.6-2.6); Phosphorous 4.7 mg/dL (2.7-4.5); Potassium 4.5 mEq/L (3.5-5.1); Total Protein 5.1 g/dL (6.4-8.9)
[2020-07-04] MEDS: Pantoprazole 40 MG VIAL IVP SCH ×2 (05:49→17:10)
[2020-07-04] MEDS: Furosemide 40 MG/4 ML VIAL IVP SCH ×2 (08:27→20:38)
[2020-07-04] MEDS: atenoloL 25 MG TABLET PO SCH ×2 (08:27→20:38)
[2020-07-04] MEDS: Insulin LISPRO 300 UNITS/3 ML VIAL SUBQ SCH ×4 (08:29→20:36)
[2020-07-04] MEDS: Insulin DETEMIR 100 UNIT/ML X5UNITS SUBQ SCH (20:36)
[2020-07-04] MEDS: QUEtiapine Fumarate 25 MG TABLET PO SCH (20:38)
[2020-07-04] MEDS: Azithromycin 500 MG in 0.9 % Sodium Chloride 250 ML IVPB SCH (20:38)
[2020-07-05] MEDS: Ipratropium 1 PUFF INHALER IH SCH ×6 (03:55→23:52)
[2020-07-05 04:39] LABS: Hematocrit 25.5 % (37.5-50.1); Hemoglobin 7.8 g/dL (12.9-16.9); Mean Corpuscular HGB Conc 30.6 g/dL (31.6-35.5); Mean Corpuscular Hemoglobin 29.5 pg (28.0-33.3); Mean Corpuscular Volume 96.6 fL (83.0-100.0); Mean Platelet Volume 9.9 fL (9.4-12.4); Platelet Count 211 K/mcL (140-400); Red Blood Count 2.64 M/mcL (4.19-5.50); Red Cell Distribution Width 16.3 % (11.5-14.5); White Blood Count 11.7 K/mcL (4.3-11.1)
[2020-07-05 05:07] LABS: Calcium 8.5 mg/dL (8.6-10.3); Magnesium 1.8 mg/dL (1.6-2.6); Phosphorous 3.8 mg/dL (2.7-4.5)
[2020-07-05] MEDS: Pantoprazole 40 MG VIAL IVP SCH ×2 (05:42→17:40)
[2020-07-05] MEDS: Furosemide 40 MG/4 ML VIAL IVP SCH ×2 (08:29→20:43)
[2020-07-05] MEDS: atenoloL 25 MG TABLET PO SCH ×2 (08:34→20:43)
[2020-07-05] MEDS: Lactobacillus 1 EACH CAP.SPRINK PO SCH (08:34)
[2020-07-05] MEDS: Insulin LISPRO 300 UNITS/3 ML VIAL SUBQ SCH ×4 (08:36→20:42)
[2020-07-05] MEDS: *HR* OxyCODONE/APAP 7.5/325 TABLET PO PRN (15:22)
[2020-07-05] MEDS: Insulin DETEMIR 100 UNIT/ML X5UNITS SUBQ SCH (20:42)
[2020-07-05] MEDS: QUEtiapine Fumarate 25 MG TABLET PO SCH (20:43)
[2020-07-05] MEDS: Azithromycin 500 MG in 0.9 % Sodium Chloride 250 ML IVPB SCH (21:17)
[2020-07-05] MEDS ORDERED: Insulin LISPRO 300 UNITS/3 ML VIAL SUBQ ONE (23:41)
[2020-07-06] MEDS ORDERED: Insulin LISPRO 300 UNITS/3 ML VIAL SUBQ ONE (01:30)
[2020-07-06 02:53] LABS: Hematocrit 22.6 % (37.5-50.1); Mean Corpuscular Hemoglobin 29.2 pg (28.0-33.3); Mean Corpuscular Volume 94.2 fL (83.0-100.0); Mean Platelet Volume 9.7 fL (9.4-12.4); Platelet Count 171 K/mcL (140-400); Red Cell Distribution Width 16.2 % (11.5-14.5); White Blood Count 8.8 K/mcL (4.3-11.1)
[2020-07-06 03:10] LABS: Calcium 8.3 mg/dL (8.6-10.3); Magnesium 1.7 mg/dL (1.6-2.6); Phosphorous 3.8 mg/dL (2.7-4.5); Potassium 3.8 mEq/L (3.5-5.1)
[2020-07-06] MEDS: Ipratropium 1 PUFF INHALER IH SCH ×6 (03:50→23:56)
[2020-07-06] MEDS: Pantoprazole 40 MG VIAL IVP SCH ×2 (05:26→16:58)
[2020-07-06] MEDS: Insulin LISPRO 300 UNITS/3 ML VIAL SUBQ SCH ×4 (09:45→23:31)
[2020-07-06] MEDS: atenoloL 25 MG TABLET PO SCH ×2 (09:50→20:04)
[2020-07-06] MEDS: Lactobacillus 1 EACH CAP.SPRINK PO SCH (09:50)
[2020-07-06] MEDS: Furosemide 40 MG/4 ML VIAL IVP SCH ×2 (09:56→23:30)
[2020-07-06 10:21] LABS: Basophils % 0.1 %; Eosinophils % 0.8 %; Hematocrit 24.6 % (37.5-50.1); Hemoglobin 7.5 g/dL (12.9-16.9); Immature Granulocytes % 0.8 % (0-4); Lymphocytes # 0.6 K/mcL (0.6-4.6); Lymphocytes % 3.3 %; Mean Corpuscular HGB Conc 30.5 g/dL (31.6-35.5); Mean Corpuscular Hemoglobin 28.5 pg (28.0-33.3); Mean Corpuscular Volume 93.5 fL (83.0-100.0); Mean Platelet Volume 9.9 fL (9.4-12.4); Monocytes # 1.6 K/mcL (0.0-1.3); Monocytes % 8.6 %; Nucleated Red Blood Cells 0.2 /100 WBC (0); Platelet Count 244 K/mcL (140-400); Red Blood Count 2.63 M/mcL (4.19-5.50); Red Cell Distribution Width 16.7 % (11.5-14.5); Segmented Neutrophils % 86.4 %
[2020-07-06 10:28] LABS: Eosinophils # 0.2 K/mcL (0.0-0.6); White Blood Count 18.5 K/mcL (4.3-11.1)
[2020-07-06] MEDS: Iron Sucrose Complex 250 MG in 0.9 % Sodium Chloride 250 ML IVPB SCH (13:16)
[2020-07-06 17:23] LABS: Eosinophils % 0.1 %; Hematocrit 22.3 % (37.5-50.1); Immature Granulocytes % 0.8 % (0-4); Lymphocytes # 0.3 K/mcL (0.6-4.6); Lymphocytes % 2.6 %; Mean Corpuscular HGB Conc 31.4 g/dL (31.6-35.5); Mean Corpuscular Hemoglobin 29.4 pg (28.0-33.3); Mean Corpuscular Volume 93.7 fL (83.0-100.0); Mean Platelet Volume 9.6 fL (9.4-12.4); Monocytes # 0.3 K/mcL (0.0-1.3); Monocytes % 2.7 %; Neutrophils # 9.6 K/mcL (1.6-8.9); Nucleated Red Blood Cells 0.4 /100 WBC (0); Platelet Count 165 K/mcL (140-400); Red Blood Count 2.38 M/mcL (4.19-5.50); Red Cell Distribution Width 16.7 % (11.5-14.5); Segmented Neutrophils % 93.8 %; White Blood Count 10.3 K/mcL (4.3-11.1)
[2020-07-06] MEDS: Azithromycin 500 MG in 0.9 % Sodium Chloride 250 ML IVPB SCH (19:57)
[2020-07-06] MEDS: *HR* OxyCODONE/APAP 7.5/325 TABLET PO PRN (20:02)
[2020-07-06] MEDS: QUEtiapine Fumarate 25 MG TABLET PO SCH (20:05)
[2020-07-06] MEDS: Albumin 25% 25gram/100mL 25 GM/100 ML IV.SOLN IVPB SCH (20:39)
[2020-07-06] MEDS: Insulin DETEMIR 100 UNIT/ML X5UNITS SUBQ SCH (23:30)
[2020-07-06] MEDS: dexAMETHasone 4 MG TABLET PO SCH (23:32)
[2020-07-06] MEDS: Chloraseptic Spray 177 ML BOTTLE MM PRN (23:45)
[2020-07-07 02:35] LABS: Hematocrit 21.4 % (37.5-50.1); Hemoglobin 6.6 g/dL (12.9-16.9); Immature Granulocytes % 0.8 % (0-4); Lymphocytes # 0.4 K/mcL (0.6-4.6); Lymphocytes % 5.1 %; Mean Corpuscular HGB Conc 30.8 g/dL (31.6-35.5); Mean Corpuscular Hemoglobin 29.2 pg (28.0-33.3); Mean Corpuscular Volume 94.7 fL (83.0-100.0); Mean Platelet Volume 9.7 fL (9.4-12.4); Monocytes # 0.6 K/mcL (0.0-1.3); Monocytes % 7.9 %; Neutrophils # 6.4 K/mcL (1.6-8.9); Nucleated Red Blood Cells 0.5 /100 WBC (0); Platelet Count 166 K/mcL (140-400); Red Blood Count 2.26 M/mcL (4.19-5.50); Segmented Neutrophils % 86.2 %; White Blood Count 7.5 K/mcL (4.3-11.1)
[2020-07-07 03:01] LABS: Phosphorous 3.8 mg/dL (2.7-4.5)
[2020-07-07] MEDS: Ipratropium 1 PUFF INHALER IH SCH ×6 (03:51→23:50)
[2020-07-07] MEDS ORDERED: 0.9 % Sodium Chloride 250 ML IVC SCH (04:15)
[2020-07-07] MEDS: Pantoprazole 40 MG VIAL IVP SCH ×2 (05:14→17:16)
[2020-07-07] MEDS: Chloraseptic Spray 177 ML BOTTLE MM PRN (08:15)
[2020-07-07] MEDS: Insulin LISPRO 300 UNITS/3 ML VIAL SUBQ SCH ×4 (08:47→21:00)
[2020-07-07] MEDS: Lactobacillus 1 EACH CAP.SPRINK PO SCH (08:48)
[2020-07-07] MEDS: dexAMETHasone 4 MG TABLET PO SCH ×2 (08:48→21:00)
[2020-07-07] MEDS: atenoloL 25 MG TABLET PO SCH ×2 (08:48→21:00)
[2020-07-07] MEDS: Albumin 25% 25gram/100mL 25 GM/100 ML IV.SOLN IVPB SCH ×2 (12:19→22:49)
[2020-07-07] MEDS: Furosemide 40 MG/4 ML VIAL IVP SCH (14:15)
[2020-07-07] MEDS: Iron Sucrose Complex 250 MG in 0.9 % Sodium Chloride 250 ML IVPB SCH (14:16)
[2020-07-07 14:34] LABS: Hematocrit 23.5 % (37.5-50.1); Hemoglobin 7.3 g/dL (12.9-16.9)
[2020-07-07] MEDS: QUEtiapine Fumarate 25 MG TABLET PO SCH (21:00)
[2020-07-07] MEDS: Insulin DETEMIR 100 UNIT/ML X5UNITS SUBQ SCH (21:00)
[2020-07-07 22:03] LABS: Hemoglobin 7.2 g/dL (12.9-16.9)
[2020-07-08] MEDS: Furosemide 40 MG/4 ML VIAL IVP SCH ×3 (01:11→21:51)
[2020-07-08] MEDS: Ipratropium 1 PUFF INHALER IH SCH ×6 (03:51→23:09)
[2020-07-08] MEDS: Chloraseptic Spray 177 ML BOTTLE MM PRN ×2 (05:08→11:33)
[2020-07-08] MEDS: Pantoprazole 40 MG VIAL IVP SCH ×2 (05:22→16:31)
[2020-07-08 05:24] LABS: Basophils % 0.1 %; Hemoglobin 7.1 g/dL (12.9-16.9); Immature Granulocytes % 1.2 % (0-4); Lymphocytes # 0.3 K/mcL (0.6-4.6); Lymphocytes % 3.3 %; Mean Corpuscular HGB Conc 30.9 g/dL (31.6-35.5); Mean Corpuscular Hemoglobin 29.3 pg (28.0-33.3); Mean Platelet Volume 9.9 fL (9.4-12.4); Monocytes # 0.3 K/mcL (0.0-1.3); Monocytes % 3.5 %; Neutrophils # 7.8 K/mcL (1.6-8.9); Nucleated Red Blood Cells 1.5 /100 WBC (0); Platelet Count 157 K/mcL (140-400); Red Blood Count 2.42 M/mcL (4.19-5.50); Red Cell Distribution Width 16.8 % (11.5-14.5); Segmented Neutrophils % 91.9 %; White Blood Count 8.5 K/mcL (4.3-11.1)
[2020-07-08 05:41] LABS: Calcium 9.4 mg/dL (8.6-10.3)
[2020-07-08] MEDS: atenoloL 25 MG TABLET PO SCH ×2 (07:59→21:54)
[2020-07-08] MEDS: Lactobacillus 1 EACH CAP.SPRINK PO SCH (07:59)
[2020-07-08] MEDS: dexAMETHasone 4 MG TABLET PO SCH ×2 (07:59→21:51)
[2020-07-08] MEDS: Insulin LISPRO 300 UNITS/3 ML VIAL SUBQ SCH ×4 (08:00→22:07)
[2020-07-08] MEDS: *HR* OxyCODONE/APAP 7.5/325 TABLET PO PRN (10:11)
[2020-07-08] MEDS: Iron Sucrose Complex 250 MG in 0.9 % Sodium Chloride 250 ML IVPB SCH (10:11)
[2020-07-08] MEDS: Albumin 25% 25gram/100mL 25 GM/100 ML IV.SOLN IVPB SCH ×2 (11:33→21:50)
[2020-07-08] MEDS: Magic Mouthwash 10 ML UD Cup PO SCH ×2 (13:04→16:32)
[2020-07-08 15:48] LABS: Hematocrit 20.9 % (37.5-50.1); Hemoglobin 6.6 g/dL (12.9-16.9)
[2020-07-08 16:23] LABS: Basophils % 0.1 %; Immature Granulocytes % 1.1 % (0-4); Lymphocytes # 0.2 K/mcL (0.6-4.6); Lymphocytes % 2.7 %; Mean Corpuscular HGB Conc 31.1 g/dL (31.6-35.5); Mean Corpuscular Hemoglobin 29.6 pg (28.0-33.3); Mean Corpuscular Volume 95.1 fL (83.0-100.0); Mean Platelet Volume 11.1 fL (9.4-12.4); Monocytes # 0.4 K/mcL (0.0-1.3); Monocytes % 4.2 %; Nucleated Red Blood Cells 2.6 /100 WBC (0); Platelet Count 132 K/mcL (140-400); Red Blood Count 2.23 M/mcL (4.19-5.50); Red Cell Distribution Width 17.1 % (11.5-14.5); Segmented Neutrophils % 91.9 %; White Blood Count 8.4 K/mcL (4.3-11.1)
[2020-07-08 16:25] LABS: Neutrophils # 7.7 K/mcL (1.6-8.9)
[2020-07-08] MEDS: QUEtiapine Fumarate 25 MG TABLET PO SCH (21:51)
[2020-07-08] MEDS: Insulin DETEMIR 100 UNIT/ML X5UNITS SUBQ SCH (22:07)
[2020-07-08 23:21] LABS: Hematocrit 23.2 % (37.5-50.1); Hemoglobin 7.1 g/dL (12.9-16.9)
[2020-07-09] MEDS: Ipratropium 1 PUFF INHALER IH SCH ×5 (03:47→19:50)
[2020-07-09] MEDS: *HR* OxyCODONE/APAP 7.5/325 TABLET PO PRN (04:30)
[2020-07-09] MEDS: Chloraseptic Spray 177 ML BOTTLE MM PRN (04:31)
[2020-07-09] MEDS: Pantoprazole 40 MG VIAL IVP SCH ×2 (05:21→16:34)
[2020-07-09 06:12] LABS: Hematocrit 22.3 % (37.5-50.1); Hemoglobin 7.1 g/dL (12.9-16.9); Immature Granulocytes % 0.7 % (0-4); Lymphocytes # 0.3 K/mcL (0.6-4.6); Lymphocytes % 4.3 %; Mean Corpuscular HGB Conc 31.8 g/dL (31.6-35.5); Mean Corpuscular Hemoglobin 30.1 pg (28.0-33.3); Mean Corpuscular Volume 94.5 fL (83.0-100.0); Mean Platelet Volume 10.2 fL (9.4-12.4); Monocytes # 0.4 K/mcL (0.0-1.3); Neutrophils # 6.7 K/mcL (1.6-8.9); Nucleated Red Blood Cells 1.6 /100 WBC (0); Platelet Count 147 K/mcL (140-400); Red Blood Count 2.36 M/mcL (4.19-5.50); Red Cell Distribution Width 17.5 % (11.5-14.5); White Blood Count 7.4 K/mcL (4.3-11.1)
[2020-07-09 06:32] LABS: Calcium 9.6 mg/dL (8.6-10.3); Potassium 3.6 mEq/L (3.5-5.1)
[2020-07-09] MEDS: Insulin LISPRO 300 UNITS/3 ML VIAL SUBQ SCH ×4 (07:25→20:00)
[2020-07-09] MEDS: Magic Mouthwash 10 ML UD Cup PO SCH ×3 (07:25→16:34)
[2020-07-09] MEDS: Albumin 25% 25gram/100mL 25 GM/100 ML IV.SOLN IVPB SCH ×2 (07:45→20:07)
[2020-07-09] MEDS: atenoloL 25 MG TABLET PO SCH ×2 (07:46→23:27)
[2020-07-09] MEDS: Lactobacillus 1 EACH CAP.SPRINK PO SCH (07:46)
[2020-07-09] MEDS: Iron Sucrose Complex 250 MG in 0.9 % Sodium Chloride 250 ML IVPB SCH (10:10)
[2020-07-09] MEDS: Furosemide 40 MG/4 ML VIAL IVP SCH ×2 (10:10→21:54)
[2020-07-09 13:03] LABS: Hematocrit 22.9 % (37.5-50.1); Hemoglobin 7.2 g/dL (12.9-16.9)
[2020-07-09] MEDS: dexAMETHasone 4 MG TABLET PO SCH (20:00)
[2020-07-09] MEDS: Insulin DETEMIR 100 UNIT/ML X5UNITS SUBQ SCH (20:01)
[2020-07-09 21:16] LABS: Hematocrit 20.3 % (37.5-50.1); Hemoglobin 6.5 g/dL (12.9-16.9)
[2020-07-09] MEDS: QUEtiapine Fumarate 25 MG TABLET PO SCH (21:54)
[2020-07-10] MEDS ORDERED: 0.9 % Sodium Chloride 250 ML ONE (00:08)
[2020-07-10] MEDS: Ipratropium 1 PUFF INHALER IH SCH ×7 (00:37→23:31)
[2020-07-10] MEDS: Pantoprazole 40 MG VIAL IVP SCH ×2 (05:55→17:13)
[2020-07-10 06:15] LABS: Basophils % 0.2 %; Eosinophils % 0.6 %; Hematocrit 26.3 % (37.5-50.1); Hemoglobin 7.9 g/dL (12.9-16.9); Immature Granulocytes % 0.8 % (0-4); Lymphocytes # 0.3 K/mcL (0.6-4.6); Lymphocytes % 5.4 %; Mean Corpuscular Hemoglobin 29.4 pg (28.0-33.3); Mean Corpuscular Volume 97.8 fL (83.0-100.0); Mean Platelet Volume 10.1 fL (9.4-12.4); Monocytes # 0.4 K/mcL (0.0-1.3); Neutrophils # 5.4 K/mcL (1.6-8.9); Nucleated Red Blood Cells 1.7 /100 WBC (0); Platelet Count 153 K/mcL (140-400); Red Blood Count 2.69 M/mcL (4.19-5.50); Red Cell Distribution Width 17.6 % (11.5-14.5); White Blood Count 6.3 K/mcL (4.3-11.1)
[2020-07-10 06:16] LABS: INR 1.3; Prothrombin Time 15.1 Seconds (9.4-12.1)
[2020-07-10 06:42] LABS: Calcium 9.9 mg/dL (8.6-10.3); Magnesium 1.8 mg/dL (1.6-2.6); Phosphorous 4.7 mg/dL (2.7-4.5); Potassium 3.5 mEq/L (3.5-5.1)
[2020-07-10] MEDS: dexAMETHasone 4 MG TABLET PO SCH ×2 (09:14→21:40)
[2020-07-10] MEDS: Lactobacillus 1 EACH CAP.SPRINK PO SCH (09:14)
[2020-07-10] MEDS: Furosemide 40 MG/4 ML VIAL IVP SCH ×2 (09:14→21:40)
[2020-07-10] MEDS: atenoloL 25 MG TABLET PO SCH ×2 (09:14→21:40)
[2020-07-10] MEDS: Insulin LISPRO 300 UNITS/3 ML VIAL SUBQ SCH ×4 (09:15→21:11)
[2020-07-10] MEDS: Magic Mouthwash 10 ML UD Cup PO SCH ×3 (09:15→17:13)
[2020-07-10] MEDS: Albumin 25% 25gram/100mL 25 GM/100 ML IV.SOLN IVPB SCH (09:16)
[2020-07-10] MEDS ORDERED: *HR* Propofol 200 MG/20 ML VIAL IVP ONE (14:25)
[2020-07-10] MEDS ORDERED: Lidocaine -MPF 2% 2 ML VIAL ONE ×2 (14:25→14:42)
[2020-07-10] MEDS: Insulin DETEMIR 100 UNIT/ML X5UNITS SUBQ SCH (21:27)
[2020-07-10] MEDS: *HR* OxyCODONE/APAP 7.5/325 TABLET PO PRN (21:40)
[2020-07-10] MEDS: QUEtiapine Fumarate 25 MG TABLET PO SCH (21:40)
[2020-07-11] MEDS: Ipratropium 1 PUFF INHALER IH SCH ×6 (03:41→23:24)
[2020-07-11] MEDS: Pantoprazole 40 MG VIAL IVP SCH ×2 (05:58→16:37)
[2020-07-11 07:38] LABS: Hematocrit 26.8 % (37.5-50.1); Hemoglobin 8.3 g/dL (12.9-16.9); Mean Corpuscular Hemoglobin 30.5 pg (28.0-33.3); Mean Corpuscular Volume 98.5 fL (83.0-100.0); Mean Platelet Volume 10.2 fL (9.4-12.4); Platelet Count 136 K/mcL (140-400); Red Blood Count 2.72 M/mcL (4.19-5.50); Red Cell Distribution Width 18.1 % (11.5-14.5); White Blood Count 5.5 K/mcL (4.3-11.1)
[2020-07-11 07:57] LABS: Albumin 3.7 g/dL (3.5-5.7); Albumin/Globulin Ratio 1.7 (1.1-2.2); Bilirubin,Direct 0.2 mg/dL (0.0-0.2); Bilirubin,Indirect 0.6 mg/dL (0.0-1.0); Bilirubin,Total 0.8 mg/dL (0.3-1.0); Calcium 9.5 mg/dL (8.6-10.3); Globulin 2.2 g/dL (2.4-3.5); Magnesium 1.9 mg/dL (1.6-2.6); Potassium 4.2 mEq/L (3.5-5.1); Total Protein 5.9 g/dL (6.4-8.9)
[2020-07-11] MEDS: Magic Mouthwash 10 ML UD Cup PO SCH ×2 (08:11→17:52)
[2020-07-11] MEDS: dexAMETHasone 4 MG TABLET PO SCH ×2 (08:12→20:03)
[2020-07-11] MEDS: atenoloL 25 MG TABLET PO SCH ×2 (08:12→20:04)
[2020-07-11] MEDS: Lactobacillus 1 EACH CAP.SPRINK PO SCH (08:12)
[2020-07-11] MEDS: Insulin LISPRO 300 UNITS/3 ML VIAL SUBQ SCH ×4 (08:14→20:10)
[2020-07-11] MEDS: Furosemide 40 MG/4 ML VIAL IVP SCH ×2 (08:14→20:10)
[2020-07-11] MEDS: *HR* OxyCODONE/APAP 7.5/325 TABLET PO PRN (11:40)
[2020-07-11] MEDS: Nystatin SUSP 5 ML UD.LIQ PO SCH ×4 (11:41→20:10)
[2020-07-11] MEDS: QUEtiapine Fumarate 25 MG TABLET PO SCH (20:09)
[2020-07-11] MEDS: Insulin DETEMIR 100 UNIT/ML X5UNITS SUBQ SCH (20:14)
[2020-07-12 02:52] LABS: Hematocrit 26.5 % (37.5-50.1); Hemoglobin 8.3 g/dL (12.9-16.9)
[2020-07-12] MEDS: Ipratropium 1 PUFF INHALER IH SCH ×3 (03:51→12:37)
[2020-07-12] MEDS: Insulin LISPRO 300 UNITS/3 ML VIAL SUBQ SCH (08:44)
[2020-07-12] MEDS: Nystatin SUSP 5 ML UD.LIQ PO SCH (08:58)
[2020-07-12] MEDS: Furosemide 40 MG/4 ML VIAL IVP SCH (08:58)
[2020-07-12] MEDS: atenoloL 25 MG TABLET PO SCH (08:58)
[2020-07-12] MEDS: Lactobacillus 1 EACH CAP.SPRINK PO SCH (08:58)
[2020-07-12 15:34] VITALS: BP 122/76
== END 2020-07-12 17:53 | disposition critical access hospital (66) | DRG 853 ==
LOC: EMEROOARM 18:25 → 2NENU 18:25 → SUATTDRO 06-22 15:54 → 3BNU 06-22 22:35
PROVIDERS: ADMIT Student in an Organized Health Care Education/Training Program; ATTEND Internal Medicine
PROC: ENDOEBX (2020-07-03 14:05)